=== PATIENT | female | born 1995 | race American Indian/Alaskan Native ===

== ENCOUNTER 2021-04-28 22:47 | Inpatient (IN) | payer BC, OTHER ==
[2021-04-28] MEDS ORDERED: LACTATED RINGERS 1,000 ML IV ONE (23:26)
[2021-04-28] MEDS ORDERED: OXYTOCIN DRIP 30 UNITS/500 ML BAG IV SCH ×2 (23:45)
[2021-04-28] MEDS ORDERED: OXYTOCIN 10 UNIT/1 ML INJ IM PRN (23:55)
[2021-04-28] MEDS ORDERED: TERBUTALINE 1 MG/1 ML INJ SUB-Q PRN (23:55)
[2021-04-28] MEDS ORDERED: AMPICILLIN/NS 2 GM/100 ML 2 GM/100 ML BAG IV ONE (23:55)
[2021-04-28] MEDS ORDERED: MINERAL OIL 30 ML ORAL LIQD PO PRN (23:55)
[2021-04-28] MEDS ORDERED: fentaNYL 100 MCG/2 ML INJ IV PRN (23:55)
[2021-04-28] MEDS ORDERED: ACETAMINOPHEN 325 MG TAB PO PRN (23:55)
[2021-04-28] MEDS ORDERED: ePHEDrine SULFATE 50 MG/1 ML INJ IV PRN (23:55)
[2021-04-28] MEDS ORDERED: LIDOCAINE (2%) 20 MG/1 ML VIAL 20 ML MDV INFILTRATI ONE (23:55)
[2021-04-29 00:48] LABS: Hematocrit 33.4 % (30.3-42.9); Hemoglobin 11.7 gm/dl (10.1-14.3); Mean Corpuscular HGB Conc 35 % (30-34); Mean Corpuscular Volume 90 fl (79-97); Platelet Count 184 K/mm3 (140-440); Red Blood Count 3.71 M/mm3 (3.65-5.03); Red Cell Distribution Width 14.1 % (13.2-15.2)
[2021-04-29] MEDS ORDERED: BETAMET ACET/BETAMET NA PH 6 MG/ML INJ 5 ML MDV IM SCH (01:00)
[2021-04-29 01:09] LABS: Alanine Aminotransferase 23 units/L (7-56); Albumin 3.4 g/dL (3.9-5); Blood Urea Nitrogen 8 mg/dL (7-17); Calcium 8.8 mg/dL (8.4-10.2); Hemolysis Index 10
[2021-04-29 01:11] LABS: BUN/Creatinine Ratio 27
[2021-04-29 01:24] LABS: Hepatitis C Virus Antibody Non-Reactive (NonReactive)
[2021-04-29] MEDS: LACTATED RINGERS 1,000 ML IV SCH ×3 (01:53→18:50)
--- NOTE | 2021-04-29 02:44 | Ultrasound Report ---
ULTRASOUND OBSTETRIC, 04/29/2021 CLINICAL INFORMATION/INDICATION: Evaluate well-being and presentation COMPARISON: These are available for comparison FINDINGS: There is a single intrauterine . BPD = 8.8 cm = 35 weeks, 2 day(s). Head circumference = 30.6 cm = 34 weeks, 0 day(s). Abdominal circumference = 30.3 cm = 34 weeks, 2 day(s). Femur length = 6.6 cm = 34 weeks, 1 day(s). Overall estimated sonographic age = 34 weeks, 3 day(s). heart rate is 165 beats per minute. Estimated weight is 2399 grams. position is cephalic. Placenta is anterior and right lateral and grade 2 . Amniotic fluid volume appears within normal limits and measures 8.5 cm. Impression: 1. Single living intrauterine with estimated sonographic age of 34 weeks, 3 day(s). Signer Name: Kait Cho MD Signed: 04/29/2021 2:40 AM Workstation Name: [id number]
[2021-04-29 03:03] LABS: Bilirubin,Urine NEG (Negative); Blood,Urine NEG (Negative); Color,Urine Yellow (Yellow); Mucus,Urine FEW /HPF; Protein,Urine <15 mg/dL mg/dL (Negative); Urobilinogen,Urine < 2.0 mg/dL (<2.0); WBC,Urine < 1.0 /HPF (0.0-6.0)
[2021-04-29 03:11] LABS: Amphetamine Screen,Urine Negative; Benzodiazepines Screen,Urine Negative; Cannabinoid Screen,Urine Negative; Cocaine Screen,Urine Negative; Methadone Screen,Urine Negative; Opiate Screen,Urine Negative
--- NOTE | 2021-04-29 06:09 | History and Physical Report ---
History of Present Illness Date of admission: 04/28/21 23:55 Chief complaint: Leaking of fluid History of present illness: 25 year old presented to L&D with complaint of leaking of clear fluid from vagina since 7:45 PM. Patient denies regular contractions. Patient states she received care at [facility] but records are not available. Patient states has been uncomplicated until water broke at 7:45 PM on 04/28/21. Patient states her EDC is 05/29/2021 and was based on her period and first trimester US. No labs are available; labs were ordered upon patient's admission. Past History Past Medical History: no pertinent history Past Surgical History: no surgical history [facility] History: denies: chlamydia, gonorrhea, hepatitis B, hepatitis C, herpes, HIV, syphilis, trichomonas Family/Genetic History: none Social history: no significant social history, lives with family, full code. denies: smoking, alcohol abuse, prescription drug abuse, IV drug use - Obstetrical History Expected Date of Delivery: 05/29/21 Actual Gestation: 35 Week(s) 5 Day(s) : 1 Para: 0 Hx # Term Pregnancies: 0 Number of Pregnancies: 0 Spontaneous Abortions: 0 Induced : 0 Number of Living Children: 0 Medications and Allergies Allergies Allergy/AdvReac Type Severity Reaction Status Date / Time No Known Allergies Allergy Unverified 04/28/21 23:26 Active Meds: Active Medications Acetaminophen (Acetaminophen 325 Mg Tab) 650 mg PO Q4H PRN PRN Reason: Pain, Mild (1-3) Betamethasone Acet/Betameth SodPhos (Betamet Acet/Betamet Na Ph 6 Mg/Ml Inj 5 Ml Mdv) 12 mg IM Q24H CARLO Stop: 04/30/21 01:01 Last Admin: 04/29/21 01:44 Dose: 12 mg Documented by: Ephedrine Sulfate (Ephedrine Sulfate 50 Mg/1 Ml Inj) 10 mg IV Q2M PRN PRN Reason: Hypotension Fentanyl (Fentanyl 100 Mcg/2 Ml Inj) 100 mcg IV Q2H PRN PRN Reason: Pain,Severe (7-10) LABOR PAIN Lactated Ringer's (Lactated Ringers) 1,000 mls @ 125 mls/hr IV DIRECT CARLO Last Admin: 04/29/21 01:53 Dose: 125 mls/hr Documented by: Ampicillin Sodium (Ampicillin/Ns 1 Gm/50 Ml) 1 gm in 50 mls @ 100 mls/hr IV Q4H CARLO; Protocol Mineral Oil (Mineral Oil 30 Ml Oral Liqd) 30 ml PO QHS PRN PRN Reason: Constipation Terbutaline Sulfate (Terbutaline 1 Mg/1 Ml Inj) 0.25 mg SUB-Q ONCE PRN PRN Reason: Hyperstimulation/Hypertonicity Review of Systems All systems: negative (leaking of clear water from vagina) - Vital Signs Vital signs: Vital Signs Pulse BP 100 H 123/77 04/28/21 23:14 04/28/21 23:14 Temp Pulse Resp BP Pulse Ox 99 F 103 H 18 105/59 96 04/28/21 23:15 04/29/21 06:07 04/28/21 23:15 04/29/21 05:44 04/29/21 06:07 ROM plus positive for rupture of membranes. - Physical Exam Abdomen: Positive: normal appearance, soft. Negative: distention, tenderness, guarding, rigidity Genitourinary (Female): Positive: normal external genitalia, normal perenium. Negative: perineal/vulvar lesions Vagina: Positive: other (large amount of clear fluid seen leaking from vagina) Uterus: Positive: enlarged. Negative: tender Anus/Rectum: Positive: normal perianal skin Extremities: Positive: normal. Negative: tenderness, edema - Obstetrical FHR: category 1 Uterine Contraction Monitor Mode: External Cervical Dilatation: 0.5 Cervical Effacement Percentage: 30 station: -3 Uterine Contraction Pattern: Irregular Uterine Contraction Intensity: Mild Results Result Diagrams: 04/29/21 00:28 04/29/21 00:34 Abnormal lab results 04/29/21 04/29/21 04/29/21 Range/Units 00:20 00:28 00:28 MCHC 35 H (30-34) % Carbon Dioxide (22-30) mmol/L Creatinine (0.6-1.2) mg/dL Alkaline Phosphatase (35-129) units/L Total Protein (6.3-8.2) g/dL Albumin (3.9-5) g/dL Membranes Rupture Positive A Positive A (Negative) 04/29/21 Range/Units 00:34 MCHC (30-34) % Carbon Dioxide 19 L (22-30) mmol/L Creatinine 0.3 L (0.6-1.2) mg/dL Alkaline Phosphatase 202 H (35-129) units/L Total Protein 5.8 L (6.3-8.2) g/dL Albumin 3.4 L (3.9-5) g/dL Membranes Rupture (Negative) All other labs normal. Assessment and Plan A: at 35 weeks, 5 days gestation. PPROM; spontaneous rupture of membranes. GBS unknown. P: Admit. Continuous EFM. GBS prophylaxis. labs and US ordered. Request records as soon as office opens. [place] for [facility]. Care of patient turned over to MD due to US showing EGA of 34 weeks, 3 days.
[2021-04-29] MEDS: AMPICILLIN/NS 1 GM/50 ML 1 GM/50 ML BAG IV SCH ×4 (08:12→21:24)
--- NOTE | 2021-04-29 09:10 | Progress Note ---
Assessment and Plan A: IUP@ 35.5 wks with SROM @ 7pm 04/28/21(CLEAR) GBS unknown P: Continue monitoring Start Pitocin per protocal Pain med/Epidural prn Obtain PNR Anticipate Consulted with Dr Mendieta Subjective - Subjective Date of service: 04/29/21 Principal diagnosis: IUP@ 35.5 wks Patient reports: movement normal Objective - Vital Signs Vital Signs: Vital Signs - 12hr 04/28/21 04/28/21 04/29/21 23:14 23:15 02:22 Temperature 99 F Pulse Rate 100 H 100 H 102 H Respiratory 18 Rate Blood Pressure 123/77 Blood Pressure 123/77 [Left] O2 Sat by Pulse 97 Oximetry 04/29/21 04/29/21 04/29/21 02:27 02:41 02:44 Temperature Pulse Rate 97 H 101 H 103 H Respiratory Rate Blood Pressure 109/61 Blood Pressure [Left] O2 Sat by Pulse 98 99 Oximetry 04/29/21 04/29/21 04/29/21 02:46 02:51 02:56 Temperature Pulse Rate 102 H 108 H 104 H Respiratory Rate Blood Pressure Blood Pressure [Left] O2 Sat by Pulse 99 98 98 Oximetry 04/29/21 04/29/21 04/29/21 03:01 03:06 03:11 Temperature Pulse Rate 102 H 100 H 101 H Respiratory Rate Blood Pressure Blood Pressure [Left] O2 Sat by Pulse 97 96 98 Oximetry 04/29/21 04/29/21 04/29/21 03:16 03:21 03:33 Temperature Pulse Rate 101 H 94 H 96 H Respiratory Rate Blood Pressure Blood Pressure [Left] O2 Sat by Pulse 97 97 98 Oximetry 04/29/21 04/29/21 04/29/21 03:38 03:43 03:48 Temperature Pulse Rate 101 H 98 H 99 H Respiratory Rate Blood Pressure Blood Pressure [Left] O2 Sat by Pulse 98 98 98 Oximetry 04/29/21 04/29/21 04/29/21 03:53 03:58 04:03 Temperature Pulse Rate 96 H 108 H 98 H Respiratory Rate Blood Pressure Blood Pressure [Left] O2 Sat by Pulse 97 98 97 Oximetry 04/29/21 04/29/21 04/29/21 04:08 04:13 04:18 Temperature Pulse Rate 100 H 104 H 105 H Respiratory Rate Blood Pressure Blood Pressure [Left] O2 Sat by Pulse 97 97 96 Oximetry 04/29/21 04/29/21 04/29/21 04:23 04:28 04:33 Temperature Pulse Rate 99 H 102 H 101 H Respiratory Rate Blood Pressure Blood Pressure [Left] O2 Sat by Pulse 96 96 97 Oximetry 04/29/21 04/29/21 04/29/21 04:38 04:43 04:48 Temperature Pulse Rate 98 H 110 H 109 H Respiratory Rate Blood Pressure Blood Pressure [Left] O2 Sat by Pulse 95 96 96 Oximetry 04/29/21 04/29/21 04/29/21 04:53 04:58 05:03 Temperature Pulse Rate 100 H 106 H 95 H Respiratory Rate Blood Pressure Blood Pressure [Left] O2 Sat by Pulse 98 97 97 Oximetry 04/29/21 04/29/21 04/29/21 05:08 05:13 05:18 Temperature Pulse Rate 91 H 92 H 100 H Respiratory Rate Blood Pressure Blood Pressure [Left] O2 Sat by Pulse 94 97 97 Oximetry 04/29/21 04/29/21 04/29/21 05:32 05:37 05:42 Temperature Pulse Rate 97 H 98 H 103 H Respiratory Rate Blood Pressure Blood Pressure [Left] O2 Sat by Pulse 98 98 98 Oximetry 04/29/21 04/29/21 04/29/21 05:44 05:47 05:52 Temperature Pulse Rate 99 H 102 H 115 H Respiratory Rate Blood Pressure 105/59 Blood Pressure [Left] O2 Sat by Pulse 97 97 Oximetry 04/29/21 04/29/21 04/29/21 05:57 06:02 06:07 Temperature Pulse Rate 102 H 105 H 103 H Respiratory Rate Blood Pressure Blood Pressure [Left] O2 Sat by Pulse 98 98 96 Oximetry 04/29/21 04/29/21 04/29/21 06:12 06:22 06:27 Temperature Pulse Rate 104 H 97 H 101 H Respiratory Rate Blood Pressure Blood Pressure [Left] O2 Sat by Pulse 97 97 97 Oximetry 04/29/21 04/29/21 04/29/21 06:32 06:37 06:38 Temperature Pulse Rate 102 H 102 H Respiratory 18 Rate Blood Pressure Blood Pressure [Left] O2 Sat by Pulse 98 99 Oximetry 04/29/21 04/29/21 04/29/21 06:42 06:44 06:47 Temperature Pulse Rate 102 H 100 H 97 H Respiratory Rate Blood Pressure 108/55 Blood Pressure [Left] O2 Sat by Pulse 97 96 Oximetry 04/29/21 04/29/21 04/29/21 06:52 06:57 07:02 Temperature Pulse Rate 99 H 102 H 97 H Respiratory Rate Blood Pressure Blood Pressure [Left] O2 Sat by Pulse 96 96 94 Oximetry 04/29/21 04/29/21 04/29/21 07:03 07:07 07:11 Temperature Pulse Rate 103 H 91 H 92 H Respiratory Rate Blood Pressure Blood Pressure [Left] O2 Sat by Pulse 94 95 94 Oximetry 04/29/21 04/29/21 04/29/21 07:12 07:17 07:19 Temperature Pulse Rate 98 H 96 H Respiratory 18 Rate Blood Pressure Blood Pressure [Left] O2 Sat by Pulse 95 96 Oximetry 04/29/21 04/29/21 04/29/21 07:22 07:30 07:32 Temperature 97.7 F Pulse Rate 101 H 94 H 86 Respiratory 18 Rate Blood Pressure 120/69 Blood Pressure 120/69 [Left] O2 Sat by Pulse 98 97 Oximetry 04/29/21 04/29/21 04/29/21 07:35 07:40 07:44 Temperature Pulse Rate 101 H 98 H 105 H Respiratory Rate Blood Pressure 120/69 Blood Pressure [Left] O2 Sat by Pulse 97 99 Oximetry 04/29/21 04/29/21 04/29/21 07:45 07:50 07:55 Temperature Pulse Rate 104 H 95 H 105 H Respiratory Rate Blood Pressure Blood Pressure [Left] O2 Sat by Pulse 95 97 97 Oximetry 04/29/21 04/29/21 04/29/21 08:00 08:05 08:09 Temperature Pulse Rate 104 H 99 H 97 H Respiratory Rate Blood Pressure Blood Pressure [Left] O2 Sat by Pulse 97 97 93 Oximetry 04/29/21 04/29/21 04/29/21 08:10 08:15 08:20 Temperature Pulse Rate 108 H 109 H 102 H Respiratory Rate Blood Pressure Blood Pressure [Left] O2 Sat by Pulse 97 96 96 Oximetry 04/29/21 04/29/21 04/29/21 08:25 08:30 08:31 Temperature Pulse Rate 102 H 94 H 96 H Respiratory Rate Blood Pressure Blood Pressure [Left] O2 Sat by Pulse 96 95 94 Oximetry 04/29/21 04/29/21 04/29/21 08:43 08:45 08:48 Temperature Pulse Rate 107 H 96 H 105 H Respiratory Rate Blood Pressure 118/68 Blood Pressure [Left] O2 Sat by Pulse 97 97 Oximetry 04/29/21 04/29/21 04/29/21 08:53 08:58 09:02 Temperature Pulse Rate 111 H 99 H 101 H Respiratory Rate Blood Pressure Blood Pressure [Left] O2 Sat by Pulse 98 96 93 Oximetry 04/29/21 09:03 Temperature Pulse Rate 100 H Respiratory Rate Blood Pressure Blood Pressure [Left] O2 Sat by Pulse 94 Oximetry - Exam Breasts: normal Abdomen: Present: normal appearance, soft, normal bowel sounds Vulva: both: normal Uterus: Present: normal, firm, fundal height below umbilicus FHR: auscultation normal Uterine Contraction Monitor Mode: External Uterine Contraction Pattern: Irregular Uterine Tone Measurement Phase: Resting Uterine Contraction Intensity: Mild Extremities: normal - Labs Labs: Abnormal Labs 04/29/21 04/29/21 04/29/21 00:20 00:28 00:28 MCHC 35 H Carbon Dioxide Creatinine Alkaline Phosphatase Total Protein Albumin Membranes Rupture Positive A Positive A 04/29/21 00:34 MCHC Carbon Dioxide 19 L Creatinine 0.3 L Alkaline Phosphatase 202 H Total Protein 5.8 L Albumin 3.4 L Membranes Rupture Laboratory Results - last 24 hr 04/29/21 04/29/21 04/29/21 00:20 00:28 00:28 WBC 9.3 RBC 3.71 Hgb 11.7 Hct 33.4 MCV 90 MCH 31 MCHC 35 H RDW 14.1 Plt Count 184 Sodium Potassium Chloride Carbon Dioxide Anion Gap BUN Creatinine Estimated GFR BUN/Creatinine Ratio Glucose Calcium Total Bilirubin AST ALT Alkaline Phosphatase Total Protein Albumin Albumin/Globulin Ratio Urine Color Urine Turbidity Urine pH Ur Specific [place] Urine Protein Urine Glucose (UA) Urine Ketones Urine Blood Urine Nitrite Urine Bilirubin Urine Urobilinogen Ur Leukocyte Esterase Urine WBC (Auto) Urine RBC (Auto) U Epithel Cells (Auto) Urine Mucus Membranes Rupture Positive A Urine Opiates Screen Urine Methadone Screen Ur Barbiturates Screen Ur Phencyclidine Scrn Ur Amphetamines Screen U Benzodiazepines Scrn Urine Cocaine Screen U Marijuana (THC) Screen Drugs of Abuse Note Syphilis IgG Antibody Hep Bs Antigen Hepatitis C Antibody HIV 1&2 Antibody Rapid HIV P24 Antigen Rubella IgG Antibody Blood Type O POSITIVE Antibody Screen Negative 04/29/21 04/29/21 04/29/21 00:28 00:28 00:28 WBC RBC Hgb Hct MCV MCH MCHC RDW Plt Count Sodium Potassium Chloride Carbon Dioxide Anion Gap BUN Creatinine Estimated GFR BUN/Creatinine Ratio Glucose Calcium Total Bilirubin AST ALT Alkaline Phosphatase Total Protein Albumin Albumin/Globulin Ratio Urine Color Urine Turbidity Urine pH Ur Specific [place] Urine Protein Urine Glucose (UA) Urine Ketones Urine Blood Urine Nitrite Urine Bilirubin Urine Urobilinogen Ur Leukocyte Esterase Urine WBC (Auto) Urine RBC (Auto) U Epithel Cells (Auto) Urine Mucus Membranes Rupture Positive A Urine Opiates Screen Urine Methadone Screen Ur Barbiturates Screen Ur Phencyclidine Scrn Ur Amphetamines Screen U Benzodiazepines Scrn Urine Cocaine Screen U Marijuana (THC) Screen Drugs of Abuse Note Syphilis IgG Antibody Nonreactive Hep Bs Antigen Non-reactive Hepatitis C Antibody Non-reactive HIV 1&2 Antibody Rapid Non react HIV P24 Antigen Non react Rubella IgG Antibody Immune Blood Type Antibody Screen 04/29/21 04/29/21 04/29/21 00:34 Unknown Unknown WBC RBC Hgb Hct MCV MCH MCHC RDW Plt Count Sodium 137 Potassium 3.9 Chloride 103.9 Carbon Dioxide 19 L Anion Gap 18 BUN 8 Creatinine 0.3 L Estimated GFR > 60 BUN/Creatinine Ratio 27 Glucose 78 Calcium 8.8 Total Bilirubin < 0.20 AST 22 ALT 23 Alkaline Phosphatase 202 H Total Protein 5.8 L Albumin 3.4 L Albumin/Globulin Ratio 1.4 Urine Color Yellow Urine Turbidity Clear Urine pH 6.0 Ur Specific [place] 1.017 Urine Protein <15 mg/dl Urine Glucose (UA) Neg Urine Ketones Tr Urine Blood Neg Urine Nitrite Neg Urine Bilirubin Neg Urine Urobilinogen < 2.0 Ur Leukocyte Esterase Neg Urine WBC (Auto) < 1.0 Urine RBC (Auto) 3.0 U Epithel Cells (Auto) 3.0 Urine Mucus Few Membranes Rupture Urine Opiates Screen Negative Urine Methadone Screen Negative Ur Barbiturates Screen Negative Ur Phencyclidine Scrn Negative Ur Amphetamines Screen Negative U Benzodiazepines Scrn Negative Urine Cocaine Screen Negative U Marijuana (THC) Screen Negative Drugs of Abuse Note Disclamer Syphilis IgG Antibody Hep Bs Antigen Hepatitis C Antibody HIV 1&2 Antibody Rapid HIV P24 Antigen Rubella IgG Antibody Blood Type Antibody Screen
[2021-04-29] MEDS ORDERED: OXYTOCIN DRIP 30 UNITS/500 ML BAG IV SCH (10:00)
[2021-04-29] MEDS: BUTORPHANOL 2 MG/1 ML INJ IV PRN ×2 (14:12→16:17)
[2021-04-29] MEDS ORDERED: NALOXONE 2 MG/2 ML INJ IV PRN (19:06)
[2021-04-29] MEDS ORDERED: ePHEDrine SULFATE 50 MG/1 ML INJ IV PRN (19:06)
--- NOTE | 2021-04-29 19:06 | Anesthesia Consultation ---
Anesthesia Consult and Med Hx Date of service: 04/29/21 - Airway Anesthetic Teeth Evaluation: Good ROM Head & Neck: Adequate Mental/Hyoid Distance: Adequate Mallampati Class: Class II Intubation Access Assessment: Good - Pulmonary Exam CTA: Yes - Cardiac Exam Cardiac Exam: RRR - Pre-Operative Health Status ASA Pre-Surgery Classification: ASA2 Proposed Anesthetic Plan: Epidural - Pulmonary Hx Smoking: No Hx Asthma: No Hx Respiratory Symptoms: No SOB: No COPD: No Home Oxygen Therapy: No Hx Pneumonia: No Hx Sleep Apnea: No - Cardiovascular System Hx Hypertension: No Hx Coronary Artery Disease: No Hx Heart Attack/AMI: No Hx Angina: No Hx Percutaneous Transluminal Coronary Angioplasty (PTCA): No Hx Cardia Arrhythmia: No Hx Pacemaker: No Hx Internal Defibrillator: No Hx Valvular Heart Disease: No Hx Heart Murmur: No Hx Peripheral Vascular Disease: No - Central Nervous System Hx Neuromuscular Disorder: No Hx Seizures: No CVA: No Hx Back Pain: No Hx Psychiatric Problems: No - Gastrointestinal Hx Ulcer: No Hx Gastroesophageal Reflux Disease: Yes - Endocrine Hx Renal Disease: No Hx End Stage Renal Disease: No Hx Cirrhosis: No Hx Liver Disease: No Hx Insulin Dependent Diabetes: No Hx Non-Insulin Dependent Diabetes: No Hx Thyroid Disease: No Hx Hypothyroidism: No Hx Hyperthyroidism: No - Hematic Hx Anemia: No Hx Sickle Cell Disease: No - Other Systems Hx Alcohol Use: No Hx Substance Use: No Hx Cancer: No Hx Obesity: Yes
--- NOTE | 2021-04-29 20:01 | Progress Note ---
Labor Epidural - Labor Epidural Start Time: 19:30 Stop Time: 19:50 Performed by:: OPAL MELGAR Procedure: Patient is requesting a laboring epidural for laboring pain. Patient IDed, H&P reviewed, all questions and concerns were answered, and consent was signed. Timeout was performed at bedside. Patient in sitting position. Sterile prep and drape was performed. [3] ml of 1% lidocaine skin wheal at L[3]- L [4]. 18- gauge Tuohy epidural needle was advanced to loss of resistance with saline technique. Negative CSF negative blood. Epidural catheter advanced to [12] centimeters. [NEGATIVE] Aspiration [NEGATIVE] test dose. Sterile dressing applied. Patient tolerated procedure.
[2021-04-29] MEDS: fentaNYL-BUPIV 2 MCG/ML-0.125% 200 MCG/100 ML BAG EPIDURAL SCH (20:02)
[2021-04-30] MEDS: fentaNYL-BUPIV 2 MCG/ML-0.125% 200 MCG/100 ML BAG EPIDURAL SCH (01:15)
[2021-04-30] MEDS: AMPICILLIN/NS 1 GM/50 ML 1 GM/50 ML BAG IV SCH (04:46)
[2021-04-30] MEDS ORDERED: BETAMET ACET/BETAMET NA PH 6 MG/ML INJ 5 ML MDV IM STA (04:52)
[2021-04-30] MEDS ORDERED: CARBOPROST TROMETHAMINE 250 MCG/1 ML INJ IM ONE (05:48)
[2021-04-30] MEDS ORDERED: METHYLERGONOVINE MALEATE 0.2 MG/ML VIAL IM ONE (05:48)
[2021-04-30] MEDS ORDERED: miSOPROStol 200 MCG TAB ONE ×2 (05:48)
[2021-04-30] MEDS ORDERED: GENTAMICIN/NS 80 MG/100 ML 100 ML IV ONE (08:01)
--- NOTE | 2021-04-30 09:49 | Event Note ---
Date: 04/30/21 patient complete and +2 station: direct OP poor maternal pushing effort plan to allow for passive descent FHT reassuring Dani Mendieta MD
[2021-04-30] MEDS ORDERED: OXYTOCIN 10 UNIT/1 ML INJ ONE (10:31)
--- NOTE | 2021-04-30 11:19 | Procedure Note ---
OB Delivery Note - Delivery Date of Delivery: 04/30/21 Surgeon: EDIL SMITH Estimated blood loss: 200cc - Vaginal Delivery position: OA Intrapartum events: labor-<37 weeks, prolonged 2nd stage>2.5hr Delivery induction: oxytocin Delivery monitor: external FHT, external uterine Route of delivery: Indicators for instrumentation: maternal exhaustion Delivery placenta: spontaneous Delivery cord: 3 umbilical vessels Episiotomy: none Delivery laceration: none Delivery comments: Patient pushed to deliver a viable male over an intact perineum with weight 3033 gms and 8/9. Position CORA, nuchal cord reduced at delivery. Spontaneous cry at delivery. Delivery of the anterior shoulder atraumatic, remainder of delivery uncomplicated. Cord clamped cut and baby handed to waiting ROBERT team. Spontaneous delivery of an intact placenta with three-vessel cord. Inspection of the perineum cervix and vagina revealed no lacerations. Firm fundus, EBL 200ml. All sponge needle and instrument counts correct x2. Mom and baby stable to . Dani Smith MD
[2021-04-30] MEDS ORDERED: WITCH HAZEL/ GLYCERIN PAD TP PRN (13:00)
[2021-04-30] MEDS ORDERED: PROMETHAZINE 25 MG RECT SUPP PR PRN (13:00)
[2021-04-30] MEDS ORDERED: HYDROcodone/ACETAMINOPHEN 5-325 MG TAB PO PRN (13:00)
[2021-04-30] MEDS ORDERED: diphenhydrAMINE 25 MG CAP PO PRN (13:00)
[2021-04-30] MEDS ORDERED: LANOLIN/ZINC/DIMETHICONE (LANSINOH) 7 GM TP PRN (13:00)
[2021-04-30] MEDS ORDERED: ONDANSETRON 4 MG/2 ML INJ IV PRN (13:00)
[2021-04-30] MEDS ORDERED: ACETAMINOPHEN 325 MG TAB PO PRN (13:00)
[2021-04-30] MEDS ORDERED: PROMETHAZINE 25 MG TAB PO PRN (13:00)
[2021-04-30] MEDS: IBUPROFEN 600 MG TAB PO SCH ×3 (13:00→21:51)
--- NOTE | 2021-04-30 16:03 | Post Anesthesia Evaluation ---
- Post Anesthesia Evaluation Patient Participated: Yes Airway Patent: Yes Stable Respiratory Function: Yes Nausea/Vomiting: No Temp > 96.8F: Yes Pain Manageable: Yes Adequeate Hydration: Yes Anesthesia Complications: No Block Receding Appropriately: Yes Patient on Ventilator: No
[2021-04-30] MEDS ORDERED: MAGNESIUM HYDROXIDE (MOM) ORAL LIQD UDC PO PRN (22:00)
[2021-04-30 23:16] LABS: Hematocrit 34.4 % (30.3-42.9); Hemoglobin 11.6 gm/dl (10.1-14.3)
--- NOTE | 2021-05-01 08:26 | Progress Note ---
Subjective - Subjective Date of service: 05/01/21 Principal diagnosis: IUP@ 35.5 wks Patient reports: appetite normal, voiding normally, pain well controlled, ambulating normally (stable,continue routine PP care) Objective - Vital Signs Latest vital signs: Vital Signs Temp Pulse Resp BP BP Pulse Ox 05/01/21 00:20 98.0 F 91 H 20 106/64 98 04/30/21 21:51 20 04/30/21 20:21 98.1 F 99 H 20 117/68 100 04/30/21 14:00 99.2 F 87 16 115/73 100 04/30/21 12:13 103 H 117/61 04/30/21 11:58 93 H 116/63 04/30/21 11:43 98 H 119/63 04/30/21 11:28 104 H 117/60 04/30/21 11:16 98 H 100 04/30/21 11:13 106 H 121/64 93 04/30/21 11:11 113 H 95 04/30/21 11:06 154 H 97 04/30/21 11:01 45 L 04/30/21 11:00 100 H 116/61 04/30/21 10:59 103 H 116/65 04/30/21 10:55 81 L 04/30/21 10:49 102 H 95 04/30/21 10:46 113 H 143/63 04/30/21 10:41 141 H 96 04/30/21 10:35 139 H 132/66 98 04/30/21 10:30 117 H 99 04/30/21 10:25 113 H 92 04/30/21 10:23 62 85 04/30/21 10:18 125 H 85 04/30/21 10:13 110 H 137/76 96 04/30/21 10:11 105 H 94 04/30/21 10:08 118 H 95 04/30/21 10:03 102 H 92 04/30/21 10:00 108 H 103/59 04/30/21 09:58 115 H 94 04/30/21 09:53 106 H 95 04/30/21 09:48 102 H 94 04/30/21 09:47 101 H 94 04/30/21 09:44 108 H 136/57 04/30/21 09:43 115 H 96 04/30/21 09:35 127 H 95 04/30/21 09:30 105 H 99 04/30/21 09:29 107 H 118/65 04/30/21 09:25 107 H 98 04/30/21 09:20 122 H 99 04/30/21 09:15 87 99 04/30/21 09:13 87 115/71 04/30/21 09:10 139 H 96 04/30/21 09:05 88 97 04/30/21 09:00 145 H 90 04/30/21 08:59 93 H 120/73 04/30/21 08:55 93 H 98 04/30/21 08:50 153 H 98 04/30/21 08:45 133 H 100 04/30/21 08:43 130 H 126/73 91 04/30/21 08:40 126 H 100 04/30/21 08:35 117 H 97 04/30/21 08:30 116 H 122/79 97 - Exam Cardiovascular: Present: Regular rate Lungs: Present: Clear to auscultation Abdomen: Present: normal appearance, soft, normal bowel sounds Uterus: Present: fundal height below umbilicus Extremities: Present: normal Deep Tendon Reflex Grade: Normal but brisk +3
[2021-05-01] MEDS: IBUPROFEN 600 MG TAB PO SCH ×3 (12:20→23:50)
[2021-05-02] MEDS: IBUPROFEN 600 MG TAB PO SCH ×3 (06:07→17:54)
[2021-05-02] MEDS ORDERED: metroNIDAZOLE/NS 500 MG/100 ML 500 MG/100 ML BAG IV ONE (10:00)
--- NOTE | 2021-05-02 10:12 | Progress Note ---
Assessment and Plan A: day 1 S/P . Mild tachycardia. P: Repeat CBC. IV Flagyl x1; IV Clindamycin x1. Consulted Dr. Mendieta re: this patient. Subjective - Subjective Date of service: 05/02/21 Principal diagnosis: day 2 S/P Interval history: Patient has mild tachycardia. Patient is afebrile and denies chills or body aches. Patient denies chest pain, shortness of breath, leg pain, heavy bleeding, or any other symptoms. Urine culture negative. Ordered repeat CBC and IV Flagyl times 1 dose and IV Clindamycin times 1 dose per MD recommendation. Patient reports: appetite normal, voiding normally, pain well controlled, flatus, ambulating normally, no dizzy ambulation, no nauseated : doing well Objective - Vital Signs Latest vital signs: Vital Signs Temp Pulse Resp BP Pulse Ox 05/02/21 06:07 20 05/02/21 01:46 98.4 F 111 H 18 108/48 95 05/01/21 23:50 20 05/01/21 16:30 98.0 F 106 H 18 121/71 100 05/01/21 12:20 18 Intake and Output 05/01/21 05/02/21 05/02/21 23:59 07:59 15:59 Intake Total 240 480 Balance 240 480 Intake: Oral 480 Intake, Free Water 240 Other: Total, Intake Amount 120 # Voids Void 1 1 - Exam Cardiovascular: Present: Regular rate Lungs: Present: Clear to auscultation Abdomen: Present: normal appearance, soft. Absent: distention, tenderness, guarding, rigidity Uterus: Present: normal, firm, fundal height below umbilicus. Absent: bogginess, tenderness Extremities: Present: normal, edema (mild pedal edema bilaterally). Absent: tenderness
[2021-05-02] MEDS ORDERED: SODIUM CHLORIDE 0.9% 100 ML IVPB IV SCH (11:00)
[2021-05-02] MEDS ORDERED: SODIUM CHLORIDE 0.9% 1000 ML 1,000 ML IV SCH (11:00)
[2021-05-02 11:42] LABS: Basophils % (Auto) 0.3 % (0.0-1.8); Eosinophils # (Auto) 0.1 K/mm3 (0.0-0.4); Hematocrit 33.2 % (30.3-42.9); Hemoglobin 11.1 gm/dl (10.1-14.3); Lymphocytes # (Auto) 3.7 K/mm3 (1.2-5.4); Lymphocytes % (Auto) 25.6 % (13.4-35.0); Mean Corpuscular HGB Conc 34 % (30-34); Mean Corpuscular Volume 91 fl (79-97); Monocytes # (Auto) 0.7 K/mm3 (0.0-0.8); Monocytes % (Auto) 5.1 % (0.0-7.3); Platelet Count 230 K/mm3 (140-440); Red Blood Count 3.63 M/mm3 (3.65-5.03); Red Cell Distribution Width 14.7 % (13.2-15.2)
[2021-05-03] MEDS: IBUPROFEN 600 MG TAB PO SCH ×2 (00:33→06:48)
[2021-05-03 08:59] LABS: Basophils # (Auto) 0.1 K/mm3 (0.0-0.1); Basophils % (Auto) 0.5 % (0.0-1.8); Eosinophils # (Auto) 0.2 K/mm3 (0.0-0.4); Eosinophils % (Auto) 2.1 % (0.0-4.3); Hematocrit 34.9 % (30.3-42.9); Hemoglobin 11.7 gm/dl (10.1-14.3); Lymphocytes # (Auto) 2.4 K/mm3 (1.2-5.4); Lymphocytes % (Auto) 20.9 % (13.4-35.0); Mean Corpuscular HGB Conc 34 % (30-34); Mean Corpuscular Volume 92 fl (79-97); Monocytes # (Auto) 0.7 K/mm3 (0.0-0.8); Monocytes % (Auto) 5.9 % (0.0-7.3); Platelet Count 218 K/mm3 (140-440); Red Blood Count 3.81 M/mm3 (3.65-5.03); Red Cell Distribution Width 14.5 % (13.2-15.2)
--- NOTE | 2021-05-03 11:15 | Progress Note ---
Assessment and Plan A: PP Day #3 Stable P: Follow Routine Orders D/C Home today RTO in 6 Weeks Subjective - Subjective Date of service: 05/03/21 Principal diagnosis: day 2 S/P Patient reports: appetite normal, voiding normally, pain well controlled, flatus, bowel movement, ambulating normally [place]: doing well, bottle feeding Objective - Vital Signs Latest vital signs: Vital Signs Temp Pulse Resp BP BP Pulse Ox 05/03/21 07:20 98.0 F 73 16 110/71 96 05/03/21 00:12 98.2 F 75 20 110/70 97 05/02/21 17:30 98.1 F 77 18 107/67 100 05/02/21 12:00 98.0 F 82 18 113/69 99 Intake and Output 05/02/21 05/03/21 05/03/21 22:59 06:59 14:59 Intake Total 240 480 Balance 240 480 Intake: Oral 240 480 Other: Total, Intake Amount 240 120 # Voids Void 1 1 - Exam Breasts: Present: normal Cardiovascular: Present: Regular rate Lungs: Present: Clear to auscultation, Normal air movement Abdomen: Present: normal appearance, soft, normal bowel sounds Uterus: Present: normal, firm, fundal height below umbilicus Extremities: Present: normal - Labs Labs: Abnormal lab results 05/02/21 05/03/21 Range/Units 11:10 08:50 WBC 14.4 H 11.5 H (4.5-11.0) K/mm3 RBC 3.63 L (3.65-5.03) M/mm3 Seg Neutrophils % 70.6 H (40.0-70.0) % Seg Neutrophils # 9.8 H 8.1 H (1.8-7.7) K/mm3
--- NOTE | 2021-05-03 11:17 | Discharge Summary ---
Providers - Providers Date of Admission: 04/28/21 23:55 Date of discharge: 05/03/21 Attending physician: MARTIN KING MD Primary care physician: MARTIN KING MD Hospitalization Reason for admission: labor, rupture of membranes Delivery: Episiotomy: none Laceration: none Other procedures: none complications: none Discharge diagnosis: delivery Cherry baby: male Condition at discharge: Good Disposition: [id number] TO HOME OR SELFCARE Plan - Provider Discharge Summary Activity: routine, no sex for 6 weeks, no heavy lifting 4 weeks, no strenuous exercise Diet: routine Instructions: routine Additional instructions: [] Smoking cessation referral if applicable(refer to patient education folder for contact #) [] Refer to [facility] Call your doctor immediately for: * Fever > 100.5 * Heavy vaginal bleeding ( >1 pad per hour) * Severe persistent headache * Shortness of breath * Reddened, hot, painful area to leg or breast * Drainage or odor from incision. * Keep incision clean and dry at all times and follow doctor's instructions regarding bathing/showering - Follow up plan Follow up: EDIL SMITH MD [Staff Physician] - 6 Weeks
[2021-05-03 17:05] VITALS: BP 118/79
== END 2021-05-03 16:30 | disposition home or self-care (01) | DRG 807 ==
LOC: TRG 22:47 → APU 22:56 → TRG 23:55 → LD 23:55 → OB 04-30 13:10
PROC: 10E0XZZ Delivery of Products of Conception, External Approach (ICD-10-PCS; principal; 2021-04-30)
PROC: 3E033VJ Introduction of Other Hormone into Peripheral Vein, Percutaneous Approach (ICD-10-PCS; 2021-04-30)
PROC: 3E0R3BZ Introduction of Anesthetic Agent into Spinal Canal, Percutaneous Approach (ICD-10-PCS; 2021-04-30)
PROC: 00HU33Z Insertion of Infusion Device into Spinal Canal, Percutaneous Approach (ICD-10-PCS; 2021-04-30)
DX: O42.913 Preterm premature rupture of membranes, unspecified as to length of time between rupture and onset of labor, third trimester (principal); Z37.0 Single live birth; Z3A.35 35 weeks gestation of pregnancy; O75.4 Other complications of obstetric surgery and procedures; R00.0 Tachycardia, unspecified; O99.62 Diseases of the digestive system complicating childbirth; O99.214 Obesity complicating childbirth; Z20.822 Contact with and (suspected) exposure to COVID-19
CPT/HCPCS: 36415; 59025; 76816; 80053; 80307; 81001; 84112; 85014; 85018; 85025; 85027; 86592; 86706; 86762; 86803; 86850; 86900; 86901; 87086; 87806; 96360; 96372; G0378; A6250; J0290; J0595; J0702; J1580; J2590; J3010; J7030; J7120; U0003